=== PATIENT | male | born 1990 | race Two or more races ===

== ENCOUNTER 2021-08-14 08:09 | Outpatient (CLI) | payer OTHER ==
[~2021-08-14 08:09] MED LIST: NAPR500T14 PO; ORPH100T PO; PROTONIX40 MG PO; VOLTAREM 50 MG PO
== END 2021-08-14 08:18 | disposition home or self-care (01) ==
LOC: SONOGRAMA 08:09
PROVIDERS: ATTEND Student in an Organized Health Care Education/Training Program
DX: R07.0 Pain in throat (principal); R13.10 Dysphagia, unspecified

== ENCOUNTER 2022-08-30 13:38 | Outpatient (CLI) | payer OTHER ==
[~2022-08-30 13:38] MED LIST changes: +COZAAR50 MG
== END 2022-08-30 13:52 | disposition home or self-care (01) ==
LOC: RAD 13:38
PROVIDERS: ATTEND Obstetrics & Gynecology Obstetrics
DX: M99.01 Segmental and somatic dysfunction of cervical region (principal); M99.02 Segmental and somatic dysfunction of thoracic region; M99.03 Segmental and somatic dysfunction of lumbar region; M99.04 Segmental and somatic dysfunction of sacral region; M99.05 Segmental and somatic dysfunction of pelvic region

== ENCOUNTER 2023-09-11 02:00 | Emergency (ER) | payer OTHER ==
[~2023-09-11] VITALS: Ht 162.6 cm; Wt 86.2 kg
[2023-09-11] MEDS ORDERED: KETOROLAC TROMETHAMINE 60 MG VIAL IM ONE (03:00)
[2023-09-11] MEDS ORDERED: DEXAMETHASONE SODIUM PHOSPHATE 4 MG/ML VIAL IM ONE (03:00)
[2023-09-11 03:04] LABS: HEMOGLOBIN 14.2 g/dL (13-16.00); MEAN CELL VOLUME 85.9 fL (80.0-100.00); MEAN CORPUSCULAR HEMOGLOBIN 29.6 pg (27.00-32.0); MEAN CORPUSCULAR HGB CONC 34.5 g/dl (32.0-36.0); PLATELET COUNT 293 K/uL (150-450); RED BLOOD COUNT 4.77 M/uL (4.00-6.00); RED CELL DISTRIBUTION WIDTH 13.8 % (11.5-14.5)
[2023-09-11] MEDS ORDERED: ZITHROMAX500 MG PO (04:19)
[2023-09-11] MEDS ORDERED: TUSNEL LIQUID178 ML PO (04:19)
== END 2023-09-11 04:32 | disposition home or self-care (01) ==
LOC: ER 02:00
PROVIDERS: General Practice
DX: J06.9 Acute upper respiratory infection, unspecified (principal); Z20.822 Contact with and (suspected) exposure to COVID-19

== ENCOUNTER 2024-04-03 08:48 | Emergency (ER) | payer OTHER ==
[~2024-04-03] VITALS: Ht 162.6 cm; Wt 88.5 kg
[~2024-04-03 08:48] MED LIST changes: +TUSNEL LIQUID178 ML PO; +ZITHROMAX500 MG PO
[2024-04-03] MEDS ORDERED: KETOROLAC TROMETHAMINE 60 MG VIAL IM ONE (09:15)
[2024-04-03] MEDS ORDERED: 0.9 % SODIUM CHLORIDE 1,000 ML IV ONE (09:15)
[2024-04-03] MEDS ORDERED: FAMOtidine 10 MG/ML (4ML VIAL) IV ONE (09:15)
[2024-04-03] MEDS ORDERED: ONDANSETRON HCL 2 MG/ML VIAL IV ONE (09:15)
[2024-04-03 09:57] LABS: HEMATOCRIT 46.3 % (39.0-48.0); HEMOGLOBIN 15.7 g/dL (13-16.00); MEAN CELL VOLUME 86.3 fL (80.0-100.00); MEAN CORPUSCULAR HEMOGLOBIN 29.2 pg (27.00-32.0); MEAN CORPUSCULAR HGB CONC 33.8 g/dl (32.0-36.0); PLATELET COUNT 312 K/uL (150-450); RED BLOOD COUNT 5.37 M/uL (4.00-6.00); RED CELL DISTRIBUTION WIDTH 14.2 % (11.5-14.5)
[2024-04-03 10:19] LABS: ALBUMIN 3.7 gm/dL (3.4-5.0); BILIRUBIN TOTAL 0.26 mg/dL (0.3-1.2); CALCIUM 9.2 mg/dL (8.5-10.1); CREATININE SERUM 0.8 mg/dL (0.70-1.30); GFR 110.66; POTASSIUM 4.02 mEq/L (3.5-5.1); TOTAL PROTEIN 7.7 gm/dL (6.4-8.2)
[2024-04-03 11:07] LABS: URINE APPEARANCE Clear; URINE BILIRRUBIN Negative (NEGATIVE); URINE BLOOD Small; URINE COLOR Yellow; URINE GLUCOSE Negative (NEGATIVE); URINE KETONE Negative (NEGATIVE); URINE LEUKOCYTE Negative; URINE NITRATE Negative; URINE PROTEIN Negative (NEGATIVE); URINE UROBILINOGEN 0.2 E.U./dl
[2024-04-03 11:10] LABS: URINE BACTERIA 13.8 uL (0.0-1933); URINE EPITHELIAL CELLS 3.3 uL (0.0-38.8); URINE RBC 20.3 uL (0.0-20.8); URINE WBC 8.4 uL (0.0-23.2)
[2024-04-03] MEDS ORDERED: PEPCID AC20 MG PO (14:29)
== END 2024-04-03 14:34 | disposition home or self-care (01) ==
LOC: ER 08:50
PROVIDERS: General Practice
DX: K29.70 Gastritis, unspecified, without bleeding (principal); I10 Essential (primary) hypertension